=== PATIENT | male | born 1950 ===

== ENCOUNTER 2020-10-24 09:19 | Day surgery (SDC) | payer MEDICARE, OTHER ==
[~2020-10-24 09:19] MED LIST: Lactated Ringers 1,000 ML IV SCH; Sodium Chloride 0.9% 10 ML SDV IV PRN; Sodium Chloride 0.9% 10 ML Syringe FLUSH PRN; Sodium Chloride 0.9% 2.5 ML Syringe FLUSH PRN
[2020-10-24] MEDS ORDERED: Propofol 200 MG/20 ML SDV ONE ×3 (09:58→11:55)
[2020-10-24] MEDS ORDERED: fentaNYL 100 MCG/2 ML SDV ONE (09:58)
[2020-10-24] MEDS ORDERED: Lidocaine 2% 5 ML SDV ONE (09:58)
--- NOTE | 2020-10-24 10:10 | PCM.PREANE ---
Preanesthetic Assessment - Anesthesia/Transfusion/Family Hx Anesthesia History: Prior Anesthesia Without Reaction Family History of Anesthesia Reaction: No Transfusion History: No Prior Transfusion(s) - Review of Systems General: No Symptoms Pulmonary: No Symptoms Cardiovascular: No Symptoms Gastrointestinal: No Symptoms Neurological: No Symptoms Other: Reports: None - Physical Assessment NPO Status Date: 10/24/20 NPO Status Time: 00:01 Height: 5 ft 10 in Weight: 283 lb ASA Class: 3 Mental Status: Alert & Oriented x3 Airway Class: Mallampati = 2 Dentition: Reports: Normal Dentition, Partial ROM/Head Extension: Limited/Partial Lungs: Clear to Auscultation, Normal Respiratory Effort Cardiovascular: Regular Rate, Regular Rhythm - Allergies Allergies/Adverse Reactions: Allergies Allergy/AdvReac Type Severity Reaction Status Date / Time No Known Allergies Allergy Verified 10/18/20 11:36 - Anesthesia Plan Pre-Op Medication Ordered: None - Acknowledgements Anesthesia Type Planned: General Anesthesia Pt an Appropriate Candidate for the Planned Anesthesia: Yes Alternatives and Risks of Anesthesia Discussed w Pt/Guardian: Yes Pt/Guardian Understands and Agrees with Anesthesia Plan: Yes Additional Comments: npo fatigue no BP meds no cv problems morbid obesity bmi 41 tob never etoh occ Aodm incidental finding of covid19 positive a month ago when scheduled for EGD/Colonoscopy Pt never had recent URI type sx, no loss of taste or smell, no known covid exposures par no questions PreAnesthesia Questionnaire HEENT History: Reports: Cataract, Other (See Below) Other HEENT History: has upper removable partial denture Endocrine/Metabolic History: Reports: Diabetes, Type II, Obesity/BMI 30+ Other Endocrine/Metabolic History: recently dx with diabetes Hematologic History: Reports: Iron Deficiency Other Hematologic History: has recently had iron infusions Dermatologic History: Reports: Other (See Below) Other Dermatologic History: currently has a "spotty" rash - Past Surgical History Head Surgeries/Procedures: Reports: None HEENT Surgical History: Reports: Cataract Surgery, Oral Surgery Other HEENT Surgeries/Procedures: teeth removed - SUBSTANCE USE Tobacco Use Status *Q: Never Tobacco User Recreational Drug Use History: No - HOME MEDS Home Medications: Home Meds Ergocalciferol (Vitamin D2) [Vitamin D2] 50,000 unit PO ASDIRECTED 09/15/20 [History] metFORMIN HCl [Metformin HCl ER] 500 mg PO BID 09/15/20 [History] - CURRENT (IN HOUSE) MEDS Current Meds: Current Medications Lactated Ringer's (Ringers, Lactated) 1,000 mls @ 125 mls/hr IV ASDIRECTED [facility] Discontinued Medications Fentanyl (Fentanyl 100 Mcg/2 Ml Sdv) Confirm Administered Dose 100 mcg .ROUTE .STK-MED ONE Stop: 10/24/20 09:59 Lactated Ringer's (Ringers, Lactated) 1,000 mls @ 125 mls/hr IV ASDIRECTED [facility] Lidocaine (Lidocaine 2% 5 Ml Sdv) Confirm Administered Dose 5 ml .ROUTE .STK-MED ONE Stop: 10/24/20 09:59 Propofol (Propofol 200 Mg/20 Ml Sdv) Confirm Administered Dose 200 mg .ROUTE .STK-MED ONE Stop: 10/24/20 09:59 Sodium Chloride (Sodium Chloride 0.9% 10 Ml Syringe) 10 ml FLUSH ASDIRECTED PRN PRN Reason: Keep Vein Open Sodium Chloride (Sodium Chloride 0.9% 2.5 Ml Syringe) 2.5 ml FLUSH ASDIRECTED PRN PRN Reason: Keep Vein Open Sodium Chloride (Sodium Chloride 0.9% 10 Ml Syringe) 10 ml FLUSH ASDIRECTED PRN PRN Reason: Keep Vein Open Sodium Chloride (Sodium Chloride 0.9% 2.5 Ml Syringe) 2.5 ml FLUSH ASDIRECTED PRN PRN Reason: Keep Vein Open Sodium Chloride (Sodium Chloride 0.9% 10 Ml Sdv) 10 ml IV ASDIRECTED PRN PRN Reason: IV Use
--- NOTE | 2020-10-24 12:06 | PCM.OPNOTE ---
- General Post-Op/Procedure Note Date of Surgery/Procedure: 10/24/20 Operative Procedure(s): Diagnostic egd and colonoscopy Findings: Ascending colon polyp, transverse colon polyp, sigmoid colon polypx 3. Gastritis Pre Op Diagnosis: SIMONE Post-Op Diagnosis: Ascending colon polyp, transverse colon polyp, sigmoid colon polypx 3. Gastritis Anesthesia Technique: MAC Primary Surgeon: Lore Villalobos Condition: Good
--- NOTE | 2020-10-24 12:23 | PCM.POSTAN ---
POST ANESTHESIA ASSESSMENT - MENTAL STATUS Mental Status: Alert (no anesthetic problems), Oriented - VITAL SIGNS Vital Signs: Last Vital Signs Temp 97.9 F 10/24/20 10:18 Pulse 87 10/24/20 12:17 Resp 22 H 10/24/20 12:17 BP 145/84 H 10/24/20 12:17 Pulse Ox 93 L 10/24/20 12:17 - RESPIRATORY Respiratory Status: Respiratory Rate WNL, Airway Patent, O2 Saturation Stable - CARDIOVASCULAR CV Status: Pulse Rate WNL, Blood Pressure Stable - GASTROINTESTINAL GI Status: No Symptoms - POST OP HYDRATION Hydration Status: Adequate & Stable
--- NOTE | 2020-10-24 12:41 | PCM48HPAN ---
Post Anesthesia Note - EVALUATION WITHIN 48HRS OF ANESTHETIC Vital Signs in Normal Range: Yes Patient Participated in Evaluation: Yes Respiratory Function Stable: Yes Airway Patent: Yes Cardiovascular Function Stable: Yes Hydration Status Stable: Yes Pain Control Satisfactory: Yes Nausea and Vomiting Control Satisfactory: Yes Mental Status Recovered: Yes Vital Signs: Last Vital Signs Temp 97.9 F 10/24/20 10:18 Pulse 87 10/24/20 12:17 Resp 22 H 10/24/20 12:17 BP 145/84 H 10/24/20 12:17 Pulse Ox 93 L 10/24/20 12:17
--- NOTE | 2020-10-24 17:42 | OR ---
SURGEON: AMANDA HI MD DATE OF PROCEDURE: 10/24/2020 PREOPERATIVE DIAGNOSIS: Iron-deficiency anemia. POSTOPERATIVE DIAGNOSES: 1. Gastritis. 2. Ascending colon polyp. 3. Transverse colon polyp. 4. Sigmoid colon polyps x3. PROCEDURE PERFORMED: Diagnostic esophagogastroduodenoscopy and colonoscopy. ANESTHESIA: MAC. INSTRUMENT USED: Olympus endoscope and colonoscope. EXTENT OF EXAM: To the second portion of duodenum, to the cecum. PREPARATION: Good. LIMITATIONS: None. INDICATIONS FOR EXAMINATION: The patient is a 70-year-old male who presents with iron-deficiency anemia and a new diagnosis of diabetes. He was scheduled to undergo a diagnostic EGD and colonoscopy earlier in the month, but his COVID test came back positive. The patient is now outside of the 30 day window, is feeling well, and is ready to have the procedure done. I explained the procedures, expected perioperative course, and the risks including bleeding, infection, or damage to surrounding structures including perforation. He verbalized understanding and wishes to proceed. PROCEDURE IN DETAIL: The patient was brought into the endoscopy suite and placed in a left lateral decubitus position. A time-out was completed verifying the patient's name, age, date of , allergies, and procedure to be performed. A bite block was placed in the patient's mouth. Monitored anesthesia care was induced and continuous oxygen was provided via nasal cannula throughout the procedure. After adequate sedation was achieved, a well-lubricated endoscope was placed in the patient's mouth and advanced under direct visualization to the second portion of duodenum. This appeared normal, and a photograph was taken. The scope was then fully withdrawn while examining the color, texture, anatomy, and integrity of mucosa of the upper GI tract. The patient's duodenum appeared normal. The scope was brought into the stomach, and a photograph taken of the pylorus and GE junction. Both appeared anatomically normal. In the antrum of the stomach, the patient appeared to have some mild gastritis. There was no evidence of gross ulceration. Biopsies were taken of the gastric antrum, body, and fundus and sent for histologic review and H. pylori testing. The scope was then brought into the distal esophagus, and a photograph taken of the Z-line. This appeared normal. The esophageal mucosa appeared to be free of inflammation or ulceration. A biopsy was taken 1 cm above the Z-line and sent to Pathology, labeled as esophagus. The remainder of the esophagus was free of pathology, and the scope was removed. I then turned my attention to the colonoscopy portion of the case. A digital rectal exam was performed. This exam was within normal limits. A well-lubricated colonoscope was inserted into rectum and advanced under direct visualization to the level of the cecum. Cecum was identified by both visual and anatomic landmarks. A photograph was taken of the cecal cap; however, I was unable to retroflex the scope within the cecum due to looping of the scope more proximally. The scope was then fully withdrawn while examining the color, texture, anatomy, and integrity of the mucosa from the cecum to the anal canal. The patient was noted to have a small pedunculated polyp in the mid ascending colon. This was removed in piecemeal fashion using cold biopsy forceps. The patient had a small sessile polyp in the mid transverse colon. This was removed with cold biopsy forceps. In the proximal sigmoid colon at 50 cm, the patient was noted to have 2 small sessile polyps. These were both removed in piecemeal fashion using cold biopsy forceps. Just beyond these 2 small polyps was a larger sessile polyp. This was removed in piecemeal fashion using a hot snare. It was labeled as sigmoid colon polyp #2. The other 2 polyps were labeled as sigmoid colon polyp #1 and 3. The remainder of the colon appeared normal. The scope was brought into the rectum and retroflexed to allow visualization of the anal canal opening. This appeared normal, and a photograph was taken. The scope was then straightened out and fully withdrawn. The cecum to anus time was 30 minutes. The patient tolerated the procedure well and was transferred to the PACU in stable condition. ENDOSCOPIC DIAGNOSES: 1. Gastritis. 2. Ascending colon polyp. 3. Transverse colon polyp. 4. Sigmoid colon polyps x3. RECOMMENDATIONS: Follow up in clinic in 2 weeks. ANDREW GRANADOS /[id number]
== END 2020-10-24 12:50 | disposition home or self-care (01) ==
LOC: MW.SDS 09:19
PROVIDERS: ATTEND Surgery
DX: K29.30 Chronic superficial gastritis without bleeding (principal); K31.89 Other diseases of stomach and duodenum; K22.8 Other specified diseases of esophagus; D12.3 Benign neoplasm of transverse colon; D12.5 Benign neoplasm of sigmoid colon; D50.9 Iron deficiency anemia, unspecified; E11.65 Type 2 diabetes mellitus with hyperglycemia; E66.01 Morbid (severe) obesity due to excess calories; Z68.41 Body mass index [BMI] 40.0-44.9, adult; Z86.16 Personal history of COVID-19; Z79.84 Long term (current) use of oral hypoglycemic drugs
CPT/HCPCS: 43239; 45380; 45385; 82947; 88305; 88312; J2704; J3010; J7120; 00813